=== PATIENT | male | born 1960 | race Caucasian/White ===

== ENCOUNTER 2016-07-02 15:07 | Inpatient (IN) | payer OTHER ==
[~2016-07-02] VITALS: Ht 190.5 cm; Wt 74.9 kg
[~2016-07-02 15:07] MED LIST: CHLO25 PO; FOLI1 PO; KCL20 PO; LEVE500 PO; MAGN400 PO; MVI PO; NEUR300C PO; THIA100T PO
--- NOTE | 2016-07-02 15:41 | PD ---
HPI . Davian Acted by police for suicidal threats Chief Complaint: Psychiatric Symptoms Time Seen by Provider: 15:20 Travel History International Travel<30 days: No Contact w/Intl Traveler<30days: No Traveled to known affect area: No History of Present Illness HPI 55 yr old male with seizure disorder and essential tremor here under BA as he made threats of shooting himself with a 38. Apparently patient had a little too much to drink and was trying to get into a half way house that he was previously residing in. There was some form of argument on the phone and he made suicide threats, which he says he has no intention of doing. He says he was then contacted by the Police Department and made the threat again and was Marcelo acted. He is acutely intoxicated and tells me he had about 4 shots of cheap vodka. He reports that he does drink frequently, but not daily. Of note patient was going through a rough divorce and tells me he lost 2 of his houses along with several 100,000s of dollars. 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 He does have seizures frequently and tells me he may have had one 2 nights ago because he had some leg stiffness. He denies any tongue biting or incontinence. The time of examination patient denies any chest pain, shortness breath, nausea, vomiting , diaphoresis, abdominal pain, diarrhea, constipation, any joint pain or fatigue. He states he is ready to go home. He tells me he is not suicidal and he wants to live. He says his mother wants him at home with her, however he has a sister who is a drug abuser and he does not want to be in her presence, which is why he was reaching out alf house. 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) Psychiatric: No (The patient denies) Reproductive: No Respiratory: Yes (ASTHMA/ALLERGIES) Immunizations Current: No Seizures: Yes (Alcohol related) Thyroid Disease: No Past Surgical History Abdominal Surgery: No Body Medical Devices: 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 Cardiac Surgery: No Ear Surgery: No Endocrine Surgery: No Eye Surgery: No Genitourinary Surgery: No Gynecologic Surgery: No Joint Replacement: No Neurologic Surgery: No Oral Surgery: No Pacemaker: No Thoracic Surgery: No Other Surgery: Yes ("BUR HOLES IN HEAD" SUBDURAL HEMATOMA) Social History Alcohol Use: Yes (pt drinks 1/2 gallon of vodka daily) Tobacco Use: No (quit 5 years ago) Substance Use: Yes (ADMITS TO 1 5TH Q DAY) Allergies-Medications (Allergen,Severity, Reaction): Coded Allergies: Cat Dander (Verified Allergy, Severe, Itching, 11/17/14) itchy, watery Uncoded Allergies: own hair (Allergy, Severe, Itching, 10/29/14) itchy, watery eyes Reported Meds & Prescriptions Reported Meds & Active Scripts Active Reported Neurontin (Gabapentin) 300 Mg Cap 300 Mg PO SIX X DAILY Review of Systems General / Constitutional: No: Fever Eyes: No: Visual changes HENT: No: Headaches Cardiovascular: No: Chest Pain or Discomfort Respiratory: No: Shortness of Breath Gastrointestinal: No: Abdominal Pain Genitourinary: No: Dysuria Musculoskeletal: No: Pain Skin: No Rash Neurologic: No: Weakness Psychiatric: Positive: Substance Abuse, No: Depression Endocrine: No: Polydipsia Hematologic/Lymphatic: No: Easy Bruising Physical Exam Narrative GENERAL: AAO x 3, no acute distress, Well-nourished, well-developed patient. Acutely intoxicate, but speaking coherently. SKIN: Warm and dry. No visible rashes or bruising. HEAD: Normocephalic and atraumatic. EYES: No scleral icterus. No injection or drainage. EOM intact, Red conjunctiva b/l ENT: No nasal drainage noted. Mucous membranes pink. Airway patent. No evidence of tongue bite roper. NECK: Supple, trachea midline. No JVD. CARDIOVASCULAR: Regular rate and rhythm without murmurs, gallops, or rubs. RESPIRATORY: Breath sounds equal bilaterally. No accessory muscle use. No rhonchi or rales. GASTROINTESTINAL: Abdomen soft, non-tender, nondistended. EXTREMITIES: No cyanosis or edema. BACK: Nontender without obvious deformity. No CVA tenderness. PSYCH: AAO x 3 Data Data Orders Psych Screen (07/02/16 15:39) Alcohol (Ethanol) (07/02/16 15:39) Complete Blood Count With Diff (07/02/16 15:51) Comprehensive Metabolic Panel (07/02/16 15:51) Drug Screen, Random Urine (07/02/16 15:51) Potassium Chloride (Kcl) (07/02/16 17:00) Labs Laboratory Tests Test 07/02/16 07/02/16 15:53 15:57 White Blood Count 5.5 TH/MM3 Red Blood Count 4.54 MIL/MM3 Hemoglobin 15.8 GM/DL Hematocrit 44.8 % Mean Corpuscular Volume 98.8 FL Mean Corpuscular Hemoglobin 34.9 PG Mean Corpuscular Hemoglobin 35.3 % Concent Red Cell Distribution Width 15.0 % Platelet Count 94 TH/MM3 Mean Platelet Volume 8.5 FL Neutrophils (%) (Auto) 65.2 % Lymphocytes (%) (Auto) 17.7 % Monocytes (%) (Auto) 16.4 % Eosinophils (%) (Auto) 0.1 % Basophils (%) (Auto) 0.6 % Neutrophils # (Auto) 3.6 TH/MM3 Lymphocytes # (Auto) 1.0 TH/MM3 Monocytes # (Auto) 0.9 TH/MM3 Eosinophils # (Auto) 0.0 TH/MM3 Basophils # (Auto) 0.0 TH/MM3 CBC Comment DIFF FINAL Differential Comment Sodium Level 141 MEQ/L Potassium Level 3.1 MEQ/L Chloride Level 99 MEQ/L Carbon Dioxide Level 28.4 MEQ/L Anion Gap 14 MEQ/L Blood Urea Nitrogen 7 MG/DL Creatinine 1.05 MG/DL Estimat Glomerular Filtration 74 ML/MIN Rate Random Glucose 125 MG/DL Calcium Level 8.7 MG/DL Total Bilirubin 0.9 MG/DL Aspartate Amino Transf 217 U/L (AST/SGOT) Alanine Aminotransferase 74 U/L (ALT/SGPT) Alkaline Phosphatase 137 U/L Total Protein 8.4 GM/DL Albumin 3.9 GM/DL Ethyl Alcohol Level 306 MG/DL Urine Opiates Screen NEG Urine Barbiturates Screen NEG Urine Amphetamines Screen NEG Urine Benzodiazepines Screen NEG Urine Cocaine Screen NEG Urine Cannabinoids Screen NEG MDM Medical Decision Making Medical Screen Exam Complete: Yes Emergency Medical Condition: Yes Medical Record Reviewed: Yes Differential Diagnosis acute alcohol intoxication, suicidal ideation, depression, seizure disorder Narrative Course 55 yr old male with seizure disorder and essential tremor here under BA as he made threats of shooting himself with a 38. Apparently patient had a little too much to drink and was trying to get into a half way house that he was previously residing in. There was some form of argument on the phone and he made suicide threats, which he says he has no intention of doing. He says he was then contacted by the Police Department and made the threat again and was Marcelo acted. He is acutely intoxicated and tells me he had about 4 shots of cheap vodka. He reports that he does drink frequently, but not daily. Of note patient was going through a rough divorce and tells me he lost 2 of his houses along with several 100,000s of dollars. 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 He does have seizures frequently and tells me he may have had one 2 nights ago because he had some leg stiffness. He denies any tongue biting or incontinence. The time of examination patient denies any chest pain, shortness breath, nausea, vomiting , diaphoresis, abdominal pain, diarrhea, constipation, any joint pain or fatigue. He states he is ready to go home. He tells me he is not suicidal and he wants to live. He says his mother wants him at home with her, however he has a sister who is a drug abuser and he does not want to be in her presence, which is why he was reaching out alf house. Patient seen and examined. Discussed with Dr. Jones. No acute findings on exam other than acute alcohol intoxication and essential tremor. Labs ordered Labs reviewed: ETOH elevated as suspected, Potassium low at 3.1 and replacement provided. Patient medically cleared for psych. Condition: Stable Estefania Mora Jul 02, 2016 15:41
[2016-07-02 16:05] LABS: AUTOMATED NEUTROPHIL # 3.6 TH/MM3 (1.8-7.7); BASOPHIL % 0.6 % (0.0-2.0); EOSINOPHIL % 0.1 % (0.0-4.0); HEMATOCRIT 44.8 % (39.0-51.0); LYMPH % 17.7 % (9.0-44.0); MEAN CELL VOLUME 98.8 FL (80.0-100.0); MEAN CORPUSCULAR HEMOGLOBIN 34.9 PG (27.0-34.0); MEAN CORPUSCULAR HGB CONC 35.3 % (32.0-36.0); MONO % 16.4 % (0.0-8.0); NEUT % 65.2 % (16.0-70.0); PLATELET COUNT 94 TH/MM3 (150-450); RED BLOOD COUNT 4.54 MIL/MM3 (4.50-5.90); WHITE BLOOD COUNT 5.5 TH/MM3 (4.0-11.0)
[2016-07-02 16:17] LABS: HEMO FLAGS DIFF FINAL
[2016-07-02 16:32] LABS: AMPHETAMINE, URINE NEG (NEG); BARBITURATES, URINE NEG (NEG); COCAINE, URINE NEG (NEG)
[2016-07-02 16:32] LABS: ALT (GPT) 74 U/L (12-78); ANION GAP 14 MEQ/L (5-15); AST (GOT) 217 U/L (15-37); BICARBONATE 28.4 MEQ/L (21.0-32.0); BLOOD UREA NITROGEN 7 MG/DL (7-18); CHLORIDE 99 MEQ/L (98-107); GLOMERULAR FILTRATION RATE 74 ML/MIN (>89); POTASSIUM 3.1 MEQ/L (3.5-5.1); SODIUM (NA) 141 MEQ/L (136-145)
[2016-07-02 16:34] LABS: ALKALINE PHOSPHATASE 137 U/L (45-117); TOTAL BILIRUBIN ADULT 0.9 MG/DL (0.2-1.0)
[2016-07-02] MEDS ORDERED: POTASSIUM CHLORIDE 20 MEQ CONTROLLED RELEASE TAB PO ONE (17:00)
[2016-07-02 17:19] VITALS: BP 122/88; PULSE 110; RESP 18; TEMP 98.6; O2SAT 98
[2016-07-02 18:30] VITALS: BP 147/84; PULSE 60; RESP 18; TEMP 99.6; O2SAT 97
[2016-07-02] MEDS ORDERED: FLUMAZENIL 0.5 MG/5 ML VIAL IV PUSH PRN (18:30)
[2016-07-02] MEDS ORDERED: LORazepam 2 MG/ML VIAL IV PUSH PRN ×2 (18:30)
[2016-07-02] MEDS ORDERED: LORazepam 2 MG TAB PO PRN (18:30)
[2016-07-02] MEDS ORDERED: LORazepam 1 MG TAB PO PRN (18:30)
[2016-07-02 22:03] VITALS: BP 114/63; PULSE 101; RESP 17; O2SAT 99
[2016-07-03] VITALS (10 sets, daily range): BP systolic 108–164; BP diastolic 59–84; PULSE 64–101; RESP 16–20; TEMP 98.9–99.1; O2SAT 93–99
[2016-07-03] MEDS ORDERED: LORazepam 2 MG/ML VIAL IM ONE (08:30)
--- NOTE | 2016-07-03 08:49 | PD ---
History of Present Illness Chief Complaint: Psychiatric Symptoms Time Seen by Provider: 08:30 Travel History International Travel<30 Days: No Contact w/Intl Traveler<30days: No Known affected area: No Legal Status Legal Status: Marcelo Act Marcelo Act Signed By: Chantelle Rivera History of Present Illness: History of Present Illness 55 yr old male with hx of alcohol abuse, seizure disorder and essential tremor here under BA as he made threats of shooting himself with a 38. Patient presented intoxicated with BAL in the 300. He was allowed to sober up clinically during the night until he could be evaluated this morning. Patient is seen in J pod. Awake, alert and oriented. he is tremulous and RN has just medicated him with Ativan. he reports he has a hx of essential tremors as well as tremors related to ETOH withdrawal. His speech is clear, logical, goal directed. there is no psychosis, no felicitas and he denies any suicidal or homicidal ideation. He is future oriented and speaks of going back to AA as well as going back to his outpatient counselor. 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) Psychiatric: No (The patient denies) Reproductive: No Respiratory: Yes (ASTHMA/ALLERGIES) Immunizations Current: No Seizures: Yes (Alcohol related) Thyroid Disease: No Tetanus Vaccination: Unknown Past Surgical History Body Medical Devices: 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 fox for sucidal ideation related to relapse after a 10 year period of sobriety. History of Inpatient Treatment: Yes Guns or firearms in home: Yes Social History male. Has been living with his girlfriend. 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 Hx Alcohol Use: Yes (daily) Hx Tobacco Use: Yes (1 pack per week) Hx Substance Use: No Substance Use Type: Alcohol, Nicotine/Cigarettes Hx of Substance Use Treatment: Yes (Multiple admissions to rehab. Has been involved in AA. Reports periods of sobriety of up to 10 years. ) Family Psychiatric History None reported Allergies-Medications (Allergen,Severity, Reaction): Coded Allergies: Cat Dander (Verified Allergy, Severe, Itching, 11/17/14) itchy, watery Uncoded Allergies: own hair (Allergy, Severe, Itching, 10/29/14) itchy, watery eyes Reported Meds & Prescriptions Reported Meds & Active Scripts Active Reported Neurontin (Gabapentin) 300 Mg Cap 300 Mg PO SIX X DAILY Review of Systems Constitutional: DENIES: Diaphoretic episodes, Fatigue, Fever, Weight gain, Weight loss, Chills, Dizziness, Change in appetite, Night Sweats Endocrine: DENIES: Heat/cold intolerance, Polydipsia, Polyuria, Polyphagia Eyes: DENIES: Blurred vision, Diplopia, Eye inflammation, Eye pain, Vision loss , Photosensitivity, Double Vision Ears, nose, mouth, throat: DENIES: Tinnitus, Hearing loss, Vertigo, Nasal discharge, Oral lesions, Throat pain, Hoarseness, Ear Pain, Running Nose, Epistaxis, Sinus Pain, Toothache, Odynophagia Respiratory: DENIES: Apneas, Cough, Snoring, Wheezing, Hemoptysis, Sputum production, Shortness of breath Cardiovascular: DENIES: Chest pain, Palpitations, Syncope, Dyspnea on Exertion , PND, Lower Extremity Edema, Orthopnea, Claudication Gastrointestinal: COMPLAINS OF: Nausea Genitourinary: DENIES: Sexual dysfunction, Urinary frequency, Urinary incontinence, Urgency, Hematuria, Dysuria, Nocturia, Penile Discharge, Testicular Pain, Testicular Swelling Musculoskeletal: DENIES: Joint pain, Muscle aches, Stiffness, Joint Swelling, Back pain, Neck pain Integumentary: DENIES: Abnormal pigmentation, Nail changes, Pruritus, Rash Hematologic/lymphatic: DENIES: Bruising, Lymphadenopathy Immunologic/allergic: DENIES: Eczema, Urticaria Neurologic: COMPLAINS OF: Seizures Psychiatric: DENIES: Anxiety, Confusion, Mood changes, Depression, Hallucinations, Agitation, Suicidal Ideation, Homicidal Ideation, Delusions Exam Alert: Yes [place]: Person (ox4) Mood: Calm Affect: Euthymic Speech: Clear, Logical Eye Contact: Normal Memory Intact: Comment (not impaired) Hallucinations: Other (negative) Delusions: No Suicidal: Ideation (denies any) Homicidal: Ideation (denies) Insight/Judgement Fair. Not impaired MDM Medical Decision Making Medical Record Reviewed: Yes Assessment/Plan 55 year old male with history of alcohol abuse who presents under a BA after he made comments to a social science instructor asking her for a gun. The patient made such comments in context of alcohol consumption with intoxication. the patient was monitored in J pod until he sobered up clinically. At this time he is clinically sober and he denies any suicidal or homicidal ideation, intent or plan. He acknowledges he has a problem with alcohol and is not quite nt ready at this time to address his alcohol dependence. I have strongly suggested he return to which has helped him in the past maintain his sobriety. Does not meet criteria for BA. Will discharge to home Orders Psych Screen (07/02/16 15:39) Alcohol (Ethanol) (07/02/16 15:39) Complete Blood Count With Diff (07/02/16 15:51) Comprehensive Metabolic Panel (07/02/16 15:51) Drug Screen, Random Urine (07/02/16 15:51) Potassium Chloride (Kcl) (07/02/16 17:00) Diet Regular Basic (07/02/16 Dinner) Alcohol Withdrawal Asmt-Ciwa ONCE (07/02/16 18:16) Flumazenil Inj (Romazicon Inj) (07/02/16 18:30) Lorazepam (Ativan) (07/02/16 18:30) Lorazepam Inj (Ativan Inj) (07/02/16 18:30) Lorazepam (Ativan) (07/02/16 18:30) Lorazepam Inj (Ativan Inj) (07/02/16 18:30) Lorazepam Inj (Ativan Inj) (07/02/16 18:30) Lorazepam Inj (Ativan Inj) (07/02/16 18:30) Diet Regular Basic (07/03/16 Breakfast) Lorazepam Inj (Ativan Inj) (07/03/16 08:30) Results Vital Signs Date Time Temp Pulse Resp B/P Pulse Ox O2 Delivery O2 Flow Rate FiO2 07/03/16 08:18 98 20 164/78 97 Room Air 07/03/16 06:08 72 19 108/68 99 Room Air 07/03/16 02:00 94 17 122/59 99 Room Air 07/03/16 01:17 101 20 142/73 96 Room Air 07/02/16 22:03 101 17 114/63 99 Room Air 07/02/16 21:51 18 07/02/16 18:30 99.6 60 18 147/84 97 07/02/16 17:19 98.6 110 18 122/88 98 Room Air Laboratory Tests Test 07/02/16 07/02/16 15:53 15:57 White Blood Count 5.5 Red Blood Count 4.54 Hemoglobin 15.8 Hematocrit 44.8 Mean Corpuscular Volume 98.8 Mean Corpuscular Hemoglobin 34.9 Mean Corpuscular Hemoglobin 35.3 Concent Red Cell Distribution Width 15.0 Platelet Count 94 Mean Platelet Volume 8.5 Neutrophils (%) (Auto) 65.2 Lymphocytes (%) (Auto) 17.7 Monocytes (%) (Auto) 16.4 Eosinophils (%) (Auto) 0.1 Basophils (%) (Auto) 0.6 Neutrophils # (Auto) 3.6 Lymphocytes # (Auto) 1.0 Monocytes # (Auto) 0.9 Eosinophils # (Auto) 0.0 Basophils # (Auto) 0.0 CBC Comment DIFF FINAL Differential Comment Sodium Level 141 Potassium Level 3.1 Chloride Level 99 Carbon Dioxide Level 28.4 Anion Gap 14 Blood Urea Nitrogen 7 Creatinine 1.05 Estimat Glomerular Filtration 74 Rate Random Glucose 125 Calcium Level 8.7 Total Bilirubin 0.9 Aspartate Amino Transf 217 (AST/SGOT) Alanine Aminotransferase 74 (ALT/SGPT) Alkaline Phosphatase 137 Total Protein 8.4 Albumin 3.9 Ethyl Alcohol Level 306 Urine Opiates Screen NEG Urine Barbiturates Screen NEG Urine Amphetamines Screen NEG Urine Benzodiazepines Screen NEG Urine Cocaine Screen NEG Urine Cannabinoids Screen NEG Diagnosis Primary Impression: Alcohol abuse Additional Impression: Alcohol intoxication Psychiatrically Cleared: Yes Disposition: 01 DISCHARGE HOME Condition: Stable Problem Qualifiers Additional Impression: Alcohol intoxication Qualified Code: F10.120 - Alcohol intoxication, uncomplicated Iva Laird Jul 03, 2016 08:49
[2016-07-03] MEDS ORDERED: FLUMAZENIL 0.5 MG/5 ML VIAL IV PUSH PRN (10:30)
[2016-07-03] MEDS ORDERED: LORazepam 2 MG/ML VIAL IV PUSH PRN ×5 (10:30→19:00)
[2016-07-03] MEDS ORDERED: LORazepam 1 MG TAB PO PRN (10:30)
[2016-07-03] MEDS ORDERED: SODIUM CHLORIDE 0.9% FLUSH 5 ML FLUSH IV FLUSH PRN (10:30)
[2016-07-03] MEDS ORDERED: LORazepam 2 MG TAB PO PRN (10:30)
--- NOTE | 2016-07-03 10:30 | PD ---
Physical Exam Date Seen by Provider: Jul 03, 2016 Time Seen by Provider: 09:30 Narrative Patient brought in from psychiatric unit, apparently was being released after his Marcelo act had been released, he had come in for suicidal ideation. He was being released when he had a seizure, is currently disoriented in the ER. Vital signs are stable. Patient has had history of alcoholism and seizures in the past. GENERAL: Well-nourished, well-developed middle age white male patient who is lethargic, disoriented, postictal. SKIN: Warm and dry. HEAD: Normocephalic. EYES: No scleral icterus. No injection or drainage. NECK: Supple, trachea midline. CARDIOVASCULAR: Regular rate and rhythm without murmurs, gallops, or rubs. RESPIRATORY: Breath sounds equal bilaterally. No accessory muscle use. GASTROINTESTINAL: Abdomen soft, non-tender, nondistended. MUSCULOSKELETAL: No cyanosis, or edema. EXTREMITIES: No clubbing, cyanosis, or edema. No joint tenderness, effusion, or edema noted. He has no significant injuries. He is disoriented, postictal. Vital signs are stable in the ER. At this point, lab work had been done. His potassium is low and he had been given potassium last night. At this point, my plan would be to admit the patient as an observation for with alcohol withdrawal seizures. Case is discussed with Dr. Jang for admission. Data Data Last Documented VS Vital Signs Date Time Temp Pulse Resp B/P Pulse Ox O2 Delivery O2 Flow Rate FiO2 07/03/16 09:53 69 16 130/73 94 Room Air 07/02/16 18:30 99.6 Orders Psych Screen (07/02/16 15:39) Alcohol (Ethanol) (07/02/16 15:39) Complete Blood Count With Diff (07/02/16 15:51) Comprehensive Metabolic Panel (07/02/16 15:51) Drug Screen, Random Urine (07/02/16 15:51) Potassium Chloride (Kcl) (07/02/16 17:00) Diet Regular Basic (07/02/16 Dinner) Alcohol Withdrawal Asmt-Ciwa ONCE (07/02/16 18:16) Flumazenil Inj (Romazicon Inj) (07/02/16 18:30) Lorazepam (Ativan) (2/14/17 18:30) Lorazepam Inj (Ativan Inj) (07/02/16 18:30) Lorazepam (Ativan) (07/02/16 18:30) Lorazepam Inj (Ativan Inj) (07/02/16 18:30) Lorazepam Inj (Ativan Inj) (07/02/16 18:30) Lorazepam Inj (Ativan Inj) (07/02/16 18:30) Diet Regular Basic (07/03/16 Breakfast) Lorazepam Inj (Ativan Inj) (07/03/16 08:30) Labs Laboratory Tests Test 07/02/16 07/02/16 15:53 15:57 White Blood Count 5.5 TH/MM3 Red Blood Count 4.54 MIL/MM3 Hemoglobin 15.8 GM/DL Hematocrit 44.8 % Mean Corpuscular Volume 98.8 FL Mean Corpuscular Hemoglobin 34.9 PG Mean Corpuscular Hemoglobin 35.3 % Concent Red Cell Distribution Width 15.0 % Platelet Count 94 TH/MM3 Mean Platelet Volume 8.5 FL Neutrophils (%) (Auto) 65.2 % Lymphocytes (%) (Auto) 17.7 % Monocytes (%) (Auto) 16.4 % Eosinophils (%) (Auto) 0.1 % Basophils (%) (Auto) 0.6 % Neutrophils # (Auto) 3.6 TH/MM3 Lymphocytes # (Auto) 1.0 TH/MM3 Monocytes # (Auto) 0.9 TH/MM3 Eosinophils # (Auto) 0.0 TH/MM3 Basophils # (Auto) 0.0 TH/MM3 CBC Comment DIFF FINAL Differential Comment Sodium Level 141 MEQ/L Potassium Level 3.1 MEQ/L Chloride Level 99 MEQ/L Carbon Dioxide Level 28.4 MEQ/L Anion Gap 14 MEQ/L Blood Urea Nitrogen 7 MG/DL Creatinine 1.05 MG/DL Estimat Glomerular Filtration 74 ML/MIN Rate Random Glucose 125 MG/DL Calcium Level 8.7 MG/DL Total Bilirubin 0.9 MG/DL Aspartate Amino Transf 217 U/L (AST/SGOT) Alanine Aminotransferase 74 U/L (ALT/SGPT) Alkaline Phosphatase 137 U/L Total Protein 8.4 GM/DL Albumin 3.9 GM/DL Ethyl Alcohol Level 306 MG/DL Urine Opiates Screen NEG Urine Barbiturates Screen NEG Urine Amphetamines Screen NEG Urine Benzodiazepines Screen NEG Urine Cocaine Screen NEG Urine Cannabinoids Screen NEG MDM Medical Record Reviewed: Yes Supervised Visit with MAXINE: No Diagnosis Primary Impression: Alcohol abuse Additional Impressions: Alcohol intoxication Qualified Code: F10.120 - Alcohol intoxication, uncomplicated Recurrent seizures Admitting Information Admitting Physician Requests: Admit Disposition: 01 DISCHARGE HOME Condition: Stable Maynor Herrera MD Jul 03, 2016 10:30
[2016-07-03] MEDS ORDERED: GABA300C5 PO (11:09)
[2016-07-03] MEDS: LORazepam 2 MG/ML VIAL IV PUSH PRN ×4 (12:08→22:10)
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
[2016-07-03] MEDS: SODIUM CHLORIDE 0.9% FLUSH 5 ML FLUSH IV FLUSH SCH (20:54)
[2016-07-03 21:06] LABS: MEAN CORPUSCULAR HGB CONC 36.2 % (32.0-36.0)
[2016-07-04] VITALS: BP 135/73; PULSE 91; RESP 18; TEMP 99.7; O2SAT 94
[2016-07-04] MEDS: LORazepam 2 MG/ML VIAL IV PUSH PRN ×7 (01:03→23:33)
[2016-07-04 04:32] VITALS: BP 130/78; PULSE 83; RESP 18; TEMP 97.9; O2SAT 95
[2016-07-04 06:27] LABS: AUTOMATED NEUTROPHIL # 3.6 TH/MM3 (1.8-7.7); BASOPHIL % 0.5 % (0.0-2.0); EOSINOPHIL % 0.2 % (0.0-4.0); HEMATOCRIT 41.7 % (39.0-51.0); LYMPH % 15.5 % (9.0-44.0); LYMPHOCYTE # 0.9 TH/MM3 (1.0-4.8); MEAN CELL VOLUME 98.8 FL (80.0-100.0); MEAN CORPUSCULAR HEMOGLOBIN 35.8 PG (27.0-34.0); MONO % 19.2 % (0.0-8.0); NEUT % 64.6 % (16.0-70.0); PLATELET COUNT 64 TH/MM3 (150-450); RED BLOOD COUNT 4.22 MIL/MM3 (4.50-5.90); RED CELL DISTRIBUTION WIDTH 15.1 % (11.6-17.2); WHITE BLOOD COUNT 5.6 TH/MM3 (4.0-11.0)
[2016-07-04 06:32] LABS: HEMO FLAGS AUTO DIFF
[2016-07-04 07:07] LABS: INDIRECT BILIRUBIN 1.3 MG/DL (0.0-0.8); POTASSIUM 3.1 MEQ/L (3.5-5.1); TOTAL BILIRUBIN ADULT 1.9 MG/DL (0.2-1.0)
[2016-07-04 08:00] VITALS: BP 138/79; PULSE 71; RESP 16; TEMP 98.2; O2SAT 97
[2016-07-04 08:03] LABS: PLATELET ESTIMATE SMEAR LOW (NORMAL); PLATELET MORPHOLOGY NORMAL (NORMAL); SCAN/DIFF AUTO DIFF CONFIRMED
[2016-07-04] MEDS: FOLIC ACID 1 MG TAB PO SCH (08:32)
[2016-07-04] MEDS: GABAPENTIN 300 MG CAP PO SCH ×3 (08:32→17:53)
[2016-07-04] MEDS: THIAMINE HCL 100 MG TAB PO SCH (08:32)
[2016-07-04] MEDS: SODIUM CHLORIDE 0.9% FLUSH 5 ML FLUSH IV FLUSH SCH ×2 (08:33→21:34)
[2016-07-04] MEDS: MULTIVITAMINS/MINERALS THERAPEUTIC TAB PO SCH (08:33)
--- NOTE | 2016-07-04 10:19 | HHI.PR ---
Subjective Remarks Follow for seizures, altered mental status Patient is confused but better, not oriented to place, still having visual hallucinations. Wants to go home, I don't think he has capacity. Tremors are about the same. Objective Vitals Vital Signs Date Time Temp Pulse Resp B/P Pulse Ox O2 Delivery O2 Flow Rate FiO2 07/04/16 04:32 97.9 83 18 130/78 95 07/03/16 20:47 99.0 64 16 143/84 93 07/03/16 20:20 99.1 67 18 132/84 98 07/03/16 16:28 98.9 78 18 128/79 95 07/03/16 16:18 69 16 126/78 97 Room Air 07/03/16 12:13 70 16 127/79 96 Room Air I/O 07/03/16 07/03/16 07/03/16 07/04/16 07/04/16 07/04/16 07:00 15:00 23:00 07:00 15:00 23:00 Intake Total 0 ml 0 ml Balance 0 ml 0 ml Intake Oral 0 ml 0 ml # Voids 4 5 # Bowel Movements 0 0 Result Diagram: 07/04/16 0607 07/04/16 0607 Objective Remarks Not in distress, unkempt, confused, restrained PERRL, pink conjunctiva without injection, anicteric Nose without bleeding, airway patent, Supple neck, no masses or thyromegaly, no Kernig's or Brudzinski. Regular rate and regular rhythm, no murmurs gallops or rubs appreciated. Poor effort. Normal bowel sounds, soft, non-tender, nondistended, no guarding. Extremities without clubbing, cyanosis, or edema. No rash of generalized distribution. Skin is warm and dry. Disheveled, unkempt, awake, alert, oriented to place but not to time, moves extremities. ON restraints. A/P Assessment and Plan This is a 55-year-old male with history of seizures and alcohol use admitted for seizures Delirium trements with withdrawal seizures -continued CIWA protocol, ativan IV for seizures, continue gabapentin, neurochecks, monitor closely. No leukocytosis, mild LFT elevation. Ammonia is normal. Patient still confused, check EEG, patient wants to leave AGAINST MEDICAL ADVICE, I don't think he has capacity, consult psychiatry. Clonidine as needed for hypertension. Check urinalysis. Alcohol abuse - CIWA, continue folate, MV, thiamine Hypokalemia-replaced, recheck BMP, check magnesium DVT ppx: Gonzalo Shelton MD Jul 04, 2016 10:19
[2016-07-04] MEDS ORDERED: cloNIDine HCL 0.1 MG TAB PO PRN (10:30)
[2016-07-04 12:00] VITALS: BP 140/86; PULSE 75; RESP 16; TEMP 97.5; O2SAT 96
[2016-07-04] MEDS: ENOXAPARIN SODIUM 30 MG/0.3 ML SYRINGE SQ SCH (12:28)
--- NOTE | 2016-07-04 15:42 | MG ---
cc: PATRICIA KELLOGG M.D. Lab No: [id number] Date: 07/04/2016 Age: Sex: M Race: TECHNIQUE 17-channel EEG. DESCRIPTION: The background rhythm reveals a symmetrical alpha rhythm frequency 8-10 Hz, amplitude is 10-20 microvolts. Occasional muscle artifact is seen throughout the tracing. There are no lateralizing features. There are no epileptiform discharges. Hyperventilation was not done. Photic stimulation does result in a normal driving response. INTERPRETATION This is a normal EEG. MD MIREYA Oliver/TLL /1:44 PM /3:36 PM
[2016-07-04 16:00] VITALS: BP 133/82; PULSE 100; RESP 20; TEMP 97.9; O2SAT 95
[2016-07-04 20:00] VITALS: BP 131/76; PULSE 72; RESP 20; TEMP 98.5; O2SAT 95
[2016-07-05] VITALS (7 sets, daily range): BP systolic 121–137; BP diastolic 72–82; PULSE 79–110; RESP 18–22; TEMP 98.2–99.8; O2SAT 92–98
[2016-07-05] MEDS: LORazepam 2 MG/ML VIAL IV PUSH PRN ×2 (04:04→06:59)
[2016-07-05 06:01] LABS: BACTERIA, URINE RARE /hpf; BLOOD, URINE TRACE (NEG); GLUCOSE,URINE NEG (NEG); KETONE, URINE 150 mg/dL (NEG); MUCUS URINE FEW /lpf (OCC); NITRITE,URINE NEG (NEG); PH, URINE 6.5 (5.0-8.5); SQUAMOUS EPITHELIAL CELL URINE <1 /hpf (0-5); URINE COLOR YELLOW (YELLW/STRAW)
[2016-07-05 06:05] LABS: COMMENT (UR) CULTURE INDICATED; CULTURE IF INDICATED CULTURE INDICATED
[2016-07-05] MEDS: SODIUM CHLORIDE 0.9% FLUSH 5 ML FLUSH IV FLUSH SCH ×2 (07:34→21:33)
[2016-07-05] MEDS: MULTIVITAMINS/MINERALS THERAPEUTIC TAB PO SCH (07:35)
[2016-07-05] MEDS: FOLIC ACID 1 MG TAB PO SCH (07:35)
[2016-07-05] MEDS: THIAMINE HCL 100 MG TAB PO SCH (07:35)
[2016-07-05] MEDS: GABAPENTIN 300 MG CAP PO SCH ×3 (07:35→17:01)
[2016-07-05 09:17] LABS: BICARBONATE 23.1 MEQ/L (21.0-32.0)
[2016-07-05 09:32] LABS: POTASSIUM 2.6 MEQ/L (3.5-5.1)
--- NOTE | 2016-07-05 11:05 | HHI.PR ---
Subjective Remarks Follow-up hypokalemia, UTI, seizures. The patient states that he feels tired today. Reports pain "all over". No chest pain or dyspnea. Objective Vitals Vital Signs Date Time Temp Pulse Resp B/P Pulse Ox O2 Delivery O2 Flow Rate FiO2 07/05/16 08:05 99.6 84 22 123/78 98 07/05/16 08:04 94 07/05/16 04:49 86 07/05/16 04:00 99.6 99 20 133/76 92 07/04/16 20:00 98.5 72 20 131/76 95 07/04/16 16:00 97.9 100 20 133/82 95 07/04/16 12:00 97.5 75 16 140/86 96 I/O 07/04/16 07/04/16 07/04/16 07/05/16 07/05/16 07/05/16 07:00 15:00 23:00 07:00 15:00 23:00 Intake Total 0 ml 600 ml 120 ml Output Total 0 ml Balance 0 ml 600 ml 120 ml Intake Oral 0 ml 600 ml 120 ml Output Urine Total 0 ml # Voids 5 2 2 # Bowel Movements 0 0 0 Result Diagram: 07/04/16 0607 07/05/16 0713 Objective Remarks General: Disheveled male in no acute distress. In soft restraints. Heart: Regular rate and rhythm. No murmur. Lungs: Clear to auscultation bilaterally. No wheezes, rales, or rhonchi. Breathing is nonlabored. Abdomen: Soft, nontender, nondistended. Extremities: No lower extremity edema. SCDs. Psych: Alert. Oriented to year, month. Urinary Catheter: No Vascular Central Line Catheter: No A/P Problem List: (1) Delirium tremens ICD Code: F10.231 Status: Acute (2) Recurrent seizures ICD Code: G40.89 Status: Acute (3) Alcohol abuse ICD Code: F10.10 Status: Chronic (4) Hypokalemia ICD Code: E87.6 Status: Acute Assessment and Plan 1. Delirium tremens with withdrawal seizures: Continue CIWA protocol. Ativan IV as needed for seizures. Continue gabapentin. Neuro checks. EEG is normal. 2. Alcohol abuse: Continue CIWA protocol. Withdrawal precautions. Continue folate, thiamine, multivitamin. 3. Hypokalemia: Supplement potassium and monitor labs. Check serum magnesium. 4. UTI: Urine culture is pending. Start Rocephin. 5. DVT prophylaxis: Lovenox, SCDs. 6. Patient has been threatening to leave AMA. He is currently in restraints. Psychiatry consulted to assist with determination of capacity. Patrice He MD Jul 05, 2016 11:04
[2016-07-05] MEDS: cefTRIAXone INJ 1,000 MG in SODIUM CHLORIDE 0.9% INJ 100 ML IV SCH (11:45)
[2016-07-05] MEDS: ENOXAPARIN SODIUM 30 MG/0.3 ML SYRINGE SQ SCH (12:12)
[2016-07-05] MEDS: POTASSIUM CHLOR 20 MEQ PREMIX 100 ML IV SCH ×2 (12:28→14:26)
--- NOTE | 2016-07-05 16:32 | HHI.PYPN ---
Subjective Remarks Patient was seen today for psychiatric reevaluation and for assessment of capacity to leave AMA, patient was initially as as by . Iva Laird in the ER for suicidal ideation, she lifted the Marcelo act. On psychotic evaluation today patient is found restrained in 4-point, agitated, combative, patient is not making any sense, he is unable to provide any significant information for the psychiatric reevaluation, he is very disorganized, unable to verbalize the reason of his hospitalization, unable to list his medical problems, at this moment he is even unable to verbalize a choice. He is completely disoriented and confused. Review of Systems ROS Limitations: Altered Mental Status, Uncooperative Objective Alert: Yes [place]: Person (ox4) Mood: Calm Affect: Euthymic Memory Intact: Comment (not impaired) Hallucinations: Other (negative) Delusions: No Delusion Type: Other (none) Suicidal: Ideation (denies any) Homicidal: Ideation (denies) Insight/Judgement Poor Labs Test 07/05/16 07/05/16 05:30 07:13 Urine Color YELLOW Urine Turbidity CLEAR Urine pH 6.5 Urine Specific Collins 1.027 Urine Protein 30 mg/dL Urine Glucose (UA) NEG mg/dL Urine Ketones 150 mg/dL Urine Occult Blood TRACE Urine Nitrite NEG Urine Bilirubin NEG Urine Urobilinogen 2.0 MG/DL Urine Leukocyte Esterase SMALL Urine RBC 4 /hpf Urine WBC 13 /hpf Urine Squamous Epithelial <1 /hpf Cells Urine Bacteria RARE /hpf Urine Mucus FEW /lpf Microscopic Urinalysis Comment CULTURE INDICATED Sodium Level 139 MEQ/L Potassium Level 2.6 MEQ/L Chloride Level 99 MEQ/L Carbon Dioxide Level 23.1 MEQ/L Anion Gap 17 MEQ/L Blood Urea Nitrogen 15 MG/DL Creatinine 0.81 MG/DL Estimat Glomerular Filtration 99 ML/MIN Rate Random Glucose 98 MG/DL Calcium Level 8.8 MG/DL Date/Time Procedure Status Source Growth 07/05/16 05:30 Urine Culture Received Urine Clean Catch Pending Vitals/IOs Vital Signs Date Time Temp Pulse Resp B/P Pulse Ox O2 Delivery O2 Flow Rate FiO2 07/05/16 12:05 98.9 79 20 133/82 97 07/03/16 16:18 Room Air Intake and Output 07/04/16 07/04/16 07/05/16 08:00 16:00 00:00 Intake Total 0 ml 600 ml Output Total 0 ml Balance 0 ml 600 ml Assessment & Plan Problem List: (1) Delirium due to another medical condition Assessment & Plan: Based on this encounter with the patient, patient is disoriented, confused, unable to express a clear choice, incoherent, illogical most probably due to delirium due to underlying medical conditions, alcohol intoxication, UTI, hypokalemia. At this moment the patient does not have decision-making capacity to leave AMA. ICD Code: F05 Assessment & Plan Estimated LOS: days Justification for Cont. Inpt. Patient does not meet criteria for psychiatric admission at this moment Cheo Wade MD Jul 05, 2016 16:32
[2016-07-06] VITALS (7 sets, daily range): BP systolic 110–138; BP diastolic 71–86; PULSE 70–95; RESP 18; TEMP 95–99.7; O2SAT 95–97
[2016-07-06 08:03] LABS: BICARBONATE 28.5 MEQ/L (21.0-32.0); MAGNESIUM 1.6 MG/DL (1.5-2.5)
[2016-07-06] MEDS: FOLIC ACID 1 MG TAB PO SCH (09:41)
[2016-07-06] MEDS: THIAMINE HCL 100 MG TAB PO SCH (09:41)
[2016-07-06] MEDS: MULTIVITAMINS/MINERALS THERAPEUTIC TAB PO SCH (09:41)
[2016-07-06] MEDS: SODIUM CHLORIDE 0.9% FLUSH 5 ML FLUSH IV FLUSH SCH ×2 (09:41→22:25)
[2016-07-06] MEDS: GABAPENTIN 300 MG CAP PO SCH ×3 (09:41→17:00)
[2016-07-06] MEDS: ENOXAPARIN SODIUM 30 MG/0.3 ML SYRINGE SQ SCH (09:42)
[2016-07-06] MEDS: cefTRIAXone INJ 1,000 MG in SODIUM CHLORIDE 0.9% INJ 100 ML IV SCH (12:07)
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
[2016-07-06] MEDS: MAGNESIUM OXIDE 400 MG TAB PO SCH ×2 (15:11→22:25)
[2016-07-06] MEDS: POTASSIUM CHLOR 20 MEQ PREMIX 100 ML IV SCH (15:11)
[2016-07-07 00:31] VITALS: BP 128/69; PULSE 76; RESP 18; TEMP 99.3; O2SAT 96
[2016-07-07 04:41] VITALS: BP 132/78; PULSE 73; RESP 16; TEMP 98.7; O2SAT 95
[2016-07-07 08:23] VITALS: BP 129/80; PULSE 74; RESP 18; TEMP 98.5; O2SAT 96
[2016-07-07] MEDS: FOLIC ACID 1 MG TAB PO SCH (09:02)
[2016-07-07] MEDS: THIAMINE HCL 100 MG TAB PO SCH (09:03)
[2016-07-07] MEDS: GABAPENTIN 300 MG CAP PO SCH (09:03)
[2016-07-07] MEDS: MULTIVITAMINS/MINERALS THERAPEUTIC TAB PO SCH (09:03)
[2016-07-07] MEDS: MAGNESIUM OXIDE 400 MG TAB PO SCH (09:03)
[2016-07-07] MEDS: SODIUM CHLORIDE 0.9% FLUSH 5 ML FLUSH IV FLUSH SCH (10:00)
[2016-07-07 10:37] LABS: BICARBONATE 26.4 MEQ/L (21.0-32.0); MAGNESIUM 1.8 MG/DL (1.5-2.5); POTASSIUM 3.9 MEQ/L (3.5-5.1)
[2016-07-07] MEDS ORDERED: THERM PO (11:43)
[2016-07-07] MEDS ORDERED: NEUR300C PO (11:43)
[2016-07-07] MEDS ORDERED: MAGN400T3 PO (11:43)
[2016-07-07] MEDS ORDERED: VITA100T2 PO (11:43)
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
--- NOTE | 2016-07-07 11:46 | HHI.DS ---
cc: King Heart MD Discharge Summary Admission Date Jul 03, 2016 at 10:57 Discharge Date: Jul 07, 2016 Admitting Diagnosis alcohol withdrawal seizures (1) Delirium tremens ICD Code: F10.231 (2) Recurrent seizures ICD Code: G40.89 (3) Alcohol abuse ICD Code: F10.10 (4) Hypokalemia ICD Code: E87.6 Procedures None Brief History - From Admission Patient initially came in with suicidal ideations, admitted to the [facility], Davian acted, cleared by psychiatry. Patient was brought in from psychiatric unit back to the emergency department after Marcelo act was lifted and patient had withdrawal seizures. During that encounter, patient was restrained, very confused. Patient denies drinking alcohol daily but has history of seizures and alcohol use. He was disoriented and poor historian during the encounter CBC/BMP: 07/04/16 0607 07/07/16 0945 Significant Findings Laboratory Tests Test 07/05/16 07/05/16 07/06/16 05:30 07:13 07:10 Urine Protein 30 mg/dL (NEG-TRACE) Urine Ketones 150 mg/dL (NEG) Urine Occult Blood TRACE (NEG) Urine Leukocyte Esterase SMALL (NEG) Urine RBC 4 /hpf (0-3) Urine WBC 13 /hpf (0-5) Urine Bacteria RARE /hpf (NONE) Urine Mucus FEW /lpf (OCC) Potassium Level 2.6 MEQ/L 3.0 MEQ/L (3.5-5.1) (3.5-5.1) Anion Gap 17 MEQ/L (5-15) PE at Discharge General: Male in no acute distress. Heart: Regular rate and rhythm. No murmur. Lungs: Clear to auscultation bilaterally. No wheezes, rales, or rhonchi. Breathing is nonlabored. Abdomen: Soft, nontender, nondistended. Extremities: No lower extremity edema. SCDs. Psych: Alert, oriented, answers questions appropriately. Pt update on day of discharge The patient has no complaints at this time. He would like to go home. Denies chest pain, dyspnea, nausea, vomiting. Has had no further seizure activity. Mental status has improved significantly and patient is now oriented 3. Hospital Course The patient was admitted for further treatment of alcohol withdrawal with seizures. He was started on CIWA protocol. He remained confused. Psychiatry was consulted and the patient was felt to not have medical decision-making capacity. His mental status improved throughout the hospitalization. EEG was normal. He was no longer requiring Ativan for withdrawal symptoms. The patient had no further seizure activity. Potassium was supplemented during the hospitalization. As his symptoms resolved and his mental status cleared, he was felt to be stable for discharge home. Pt Condition on Discharge: Stable Discharge Disposition: Discharge Home Discharge Time: > 30 minutes Discharge Instructions DIET: Follow Instructions for: As Tolerated, No Restrictions Activities to Avoid: Driving Follow up Referrals: Drug/Alcohol Rehab PCP Follow-up - 1 Week New Medications: Gabapentin (Neurontin) 300 Mg Cap 300 MG PO TID Seizure Control #90 Ref 0 CAP Magnesium Oxide (Magnesium Oxide) 241.3 Mg Tab 400 MG PO DAILY supplement #30 Ref 0 TAB Multiple Vitamins W/ Minerals (Thera M Plus) 1 Tab 1 TAB PO DAILY supplement #30 Ref 0 TAB Thiamine (Vitamin B-1) 100 Mg Tab 100 MG PO DAILY supplement #30 Ref 0 TAB Discontinued Medications: Gabapentin (Gabapentin) 300 Mg Cap 300 MG PO 6 TIMES A DAY #60 Ref 0 CAP Patrice He MD Jul 07, 2016 11:46
== END 2016-07-07 13:29 | disposition home or self-care (01) | DRG 101 ==
LOC: NEPJ 15:07 → NEDA 07-03 10:28 → OBSVTOIN 07-03 10:57 → N04A 07-03 16:29 → N04B 07-04 20:14
PROVIDERS: ADMIT Family Medicine; ATTEND Family Medicine
DX: G40.89 Other seizures (principal); F10.221 Alcohol dependence with intoxication delirium; F05 Delirium due to known physiological condition; R45.851 Suicidal ideations; F10.231 Alcohol dependence with withdrawal delirium; N39.0 Urinary tract infection, site not specified; E78.00 Pure hypercholesterolemia, unspecified; E87.6 Hypokalemia; G25.0 Essential tremor; J45.909 Unspecified asthma, uncomplicated; N40.0 Benign prostatic hyperplasia without lower urinary tract symptoms; Z78.1 Physical restraint status; F17.200 Nicotine dependence, unspecified, uncomplicated
CPT/HCPCS: 80048; 80053; 80076; 80307; 80320; 81001; 82140; 82948; 83735; 85025; 87086; 95819; 96372; 96374; J0696; J1650; J2060; J3480

== ENCOUNTER 2016-08-01 19:41 | Emergency (ER) | payer SELFPAY ==
[~2016-08-01] VITALS: Ht 188 cm; Wt 71.0 kg
[~2016-08-01 19:41] MED LIST changes: -CHLO25 PO; -FOLI1 PO; -KCL20 PO; -LEVE500 PO; -MAGN400 PO; +MAGN400T3 PO; -MVI PO; +THERM PO; -THIA100T PO; +VITA100T2 PO
[2016-08-01 19:44] VITALS: BP 137/95; PULSE 121; RESP 15; TEMP 97.9; O2SAT 99
[2016-08-01 19:55] VITALS: BP 150/99; PULSE 100; RESP 18; O2SAT 96
[2016-08-01] MEDS ORDERED: SODIUM CHLOR 0.9% 1000 ML INJ 1,000 ML IV SCH (20:09)
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
[2016-08-01 21:10] VITALS: BP 119/76
== END 2016-08-01 21:20 | disposition home or self-care (01) ==
LOC: NEPC 19:41
DX: R00.0 Tachycardia, unspecified (principal); J45.909 Unspecified asthma, uncomplicated; R56.9 Unspecified convulsions; E78.00 Pure hypercholesterolemia, unspecified; F17.210 Nicotine dependence, cigarettes, uncomplicated; F10.129 Alcohol abuse with intoxication, unspecified
CPT/HCPCS: 99283; J7030